=== PATIENT | male | born 1995 | race Caucasian/White ===

== ENCOUNTER 2017-04-21 14:43 | Outpatient (CLI) | payer BC ==
--- NOTE | 2017-04-21 16:34 | ULT ---
TESTICULAR ULTRASOUND: 04/21/17 HISTORY: Spermatocele. COMPARISON: None. TECHNIQUE: Singh scale, color flow, doppler imaging with spectral waveform analysis performed in the left and ri ght testicle. FINDINGS/IMPRESSION: The right testicle has a homogeneous echotexture. No intratesticular mass. Right testicle measures 5 .5 x 3.4 x 3.2 cm. The right epididymis has a normal echotexture measuring 0.7 x 1.0 cm. No evidence of hydrocele. LEFT HEMISCROTUM: Left testicle has a homogeneous echotexture. No testicular mass is noted. Left testicle measures 3. 0 x 3.1 x 4.5 cm. Left epididymis has a 1.1 x 0.9 anechoic focus compatible with an epididymal cyst. Overall, left epi didymis measures 1.5 x 1.7 cm. No fluid in the left hemiscrotum. IMPRESSION: Left epididymal cyst. POS: [facility]
== END 2017-04-21 14:44 | disposition home or self-care (01) ==
LOC: SCSULT 14:43
PROVIDERS: ATTEND Family Medicine
DX: N43.40 Spermatocele of epididymis, unspecified (principal); N50.3 Cyst of epididymis
CPT/HCPCS: 76870; 93976